=== PATIENT | male | born 1960 | race Caucasian/White ===

== ENCOUNTER 2021-10-13 22:41 | Inpatient (IN) | payer BC ==
[~2021-10-13] VITALS: Ht 165.1 cm; Wt 98.6 kg
[2021-10-13] MEDS ORDERED: NS 1,000 ML IV ONE (23:35)
[2021-10-13] MEDS ORDERED: ECOT81TA5 PO (23:50)
[2021-10-13] MEDS ORDERED: ISOVUE-370 76% 100ML VIAL As Ordered ONE (23:57)
[2021-10-14] VITALS (11 sets, daily range): BP systolic 123–147; BP diastolic 73–95
[2021-10-14 00:18] LABS: BASO # 0.1 10^3/uL (0.0-0.2); BASO % 0.7 % (0.0-1.0); EOS # 0.1 10^3/uL (0.0-0.5); EOS % 1.6 % (0.0-3.0); HEMATOCRIT 44.3 % (42.0-52.0); HEMOGLOBIN 14.8 g/dl (13.5-17.5); LYMPH # 2.3 10^3/uL (1.5-5.0); MEAN CORPUSCULAR HEMOGLOBIN 29.9 pg (27.0-33.0); MEAN CORPUSCULAR HGB CONC 33.4 g/dl (32.0-36.5); MEAN CORPUSCULAR VOLUME 89.5 fl (80.0-96.0); MONO # 0.9 10^3/uL (0.0-0.8); NEUTROPHILS # 5.5 10^3/uL (1.5-8.5); NEUTROPHILS % 61.3 % (36.0-66.0); PLATELET COUNT, AUTOMATED 235 10^3/uL (150-450); RED BLOOD COUNT 4.95 10^6/uL (4.30-6.10); WHITE BLOOD COUNT 8.9 10^3/uL (4.0-10.0)
[2021-10-14 00:37] LABS: RSV AMPLIFICATION NEGATIVE (NEGATIVE)
[2021-10-14 00:46] LABS: ALBUMIN 3.7 GM/DL (3.2-5.2); ALT/SGPT 53 U/L (12-78); BILIRUBIN,DIRECT < 0.1 MG/DL (0.0-0.2); BILIRUBIN,TOTAL 0.6 MG/DL (0.2-1.0); BLOOD UREA NITROGEN 20 MG/DL (7-18); CARBON DIOXIDE LEVEL 25 MEQ/L (21-32); CHLORIDE LEVEL 106 MEQ/L (98-107); CREATININE FOR GFR 1.48 MG/DL (0.70-1.30); GLOMERULAR FILTRATION RATE 51.8 (>56); GLUCOSE, FASTING 125 MG/DL (70-100); LIPASE 82 U/L (73-393); POTASSIUM SERUM 4.9 MEQ/L (3.5-5.1); SODIUM LEVEL 138 MEQ/L (136-145); TOTAL PROTEIN 6.9 GM/DL (6.4-8.2)
[2021-10-14 00:48] LABS: INR 0.98; PROTHROMBIN TIME 13.4 SECONDS (12.7-14.5)
[2021-10-14] MEDS ORDERED: ASPI81TA26 PO (02:22)
[2021-10-14] MEDS ORDERED: HOME MED LIST COMPLETE! XX SCH (02:25)
[2021-10-14] MEDS ORDERED: ACETAMINOPHEN TAB 650MG DOSE (2X325MG) PO PRN (02:30)
[2021-10-14] MEDS ORDERED: PANTOPRAZOLE 40MG VIAL IV SCH (03:00)
[2021-10-14] MEDS ORDERED: NS 1,000 ML IV SCH (03:10)
[2021-10-14 03:49] LABS: CREATININE,RANDOM URINE 52.7 MG/DL
[2021-10-14 03:59] LABS: HEMATOCRIT 38.9 % (42.0-52.0); HEMOGLOBIN 13.1 g/dl (13.5-17.5)
[2021-10-14] MEDS ORDERED: SUCRALFATE 1 GM TAB PO SCH (06:00)
[2021-10-14 07:10] LABS: HEMATOCRIT 38.7 % (42.0-52.0); MEAN CORPUSCULAR HGB CONC 33.6 g/dl (32.0-36.5); MEAN CORPUSCULAR VOLUME 89.4 fl (80.0-96.0); PLATELET COUNT, AUTOMATED 173 10^3/uL (150-450); RED BLOOD COUNT 4.33 10^6/uL (4.30-6.10); WHITE BLOOD COUNT 7.4 10^3/uL (4.0-10.0)
[2021-10-14 07:21] LABS: PROTHROMBIN TIME 13.6 SECONDS (12.7-14.5)
[2021-10-14] MEDS: VANCOMYCIN ORAL SOL 250MG/5ML ORAL SYRINGE PO SCH ×4 (07:24→23:43)
[2021-10-14 08:11] LABS: BLOOD UREA NITROGEN 16 MG/DL (7-18); CALCIUM LEVEL 8.1 MG/DL (8.5-10.1); CARBON DIOXIDE LEVEL 26 MEQ/L (21-32); CHLORIDE LEVEL 109 MEQ/L (98-107); CREATININE FOR GFR 1.22 MG/DL (0.70-1.30); GLOMERULAR FILTRATION RATE > 60.0 (>56); GLUCOSE, FASTING 108 MG/DL (70-100); POTASSIUM SERUM 4.3 MEQ/L (3.5-5.1); SODIUM LEVEL 141 MEQ/L (136-145)
[2021-10-15 04:40] VITALS: BP 145/84
[2021-10-15] MEDS: VANCOMYCIN ORAL SOL 250MG/5ML ORAL SYRINGE PO SCH ×2 (05:52→12:38)
[2021-10-15] MEDS ORDERED: VANC125C3 PO (09:42)
== END 2021-10-15 13:15 | disposition home or self-care (01) | DRG 248 ==
LOC: M ED 22:41 → M ED INP 10-14 03:09 → ENRESERV 10-14 03:42 → M ICU 10-14 04:18 → M 4MAIN 10-14 17:29
PROVIDERS: ADMIT Family Medicine; ATTEND Family Medicine
DX: A04.72 Enterocolitis due to Clostridium difficile, not specified as recurrent (principal); N17.9 Acute kidney failure, unspecified; E66.9 Obesity, unspecified; Z68.36 Body mass index [BMI] 36.0-36.9, adult; Z79.82 Long term (current) use of aspirin; Z86.16 Personal history of COVID-19